=== PATIENT | female | born 1930 | race Native Hawaiian/Other Pacific Islander ===

== ENCOUNTER 2018-03-10 10:22 | Outpatient (CLI) | payer OTHER ==
[2018-03-10 11:09] LABS: PLATELET COUNT 281 K/uL (152-353)
[2018-03-10 11:53] LABS: POTASSIUM 3.9 mmol/L (3.6-5.2)
== END 2018-03-10 20:16 | disposition home or self-care (01) ==
LOC: LAB 10:22
PROVIDERS: Internal Medicine
DX: D51.0 Vitamin B12 deficiency anemia due to intrinsic factor deficiency (principal); M62.81 Muscle weakness (generalized); I10 Essential (primary) hypertension
CPT/HCPCS: 80053; 80061; 82607; 82746; 84436; 84443; 85027

== ENCOUNTER 2018-03-11 10:11 | Outpatient (CLI) | payer OTHER | END 2018-03-11 20:34 | disposition home or self-care (01) | LOC: LAB 10:11 | DX: E53.8 Deficiency of other specified B group vitamins (principal) | CPT/HCPCS: 82607 ==

== ENCOUNTER 2018-03-16 12:30 | Outpatient (CLI) | payer OTHER | END 2018-03-16 12:34 | disposition short-term general hospital (02) | LOC: AMB 12:30 | DX: R53.81 Other malaise (principal) | CPT/HCPCS: A0425; A0427 ==

== ENCOUNTER 2018-03-16 12:37 | Emergency (ER) | payer OTHER ==
[~2018-03-16] VITALS: Ht 165.1 cm; Wt 49.0 kg
[2018-03-16 12:51] VITALS: TEMP 97.5
[2018-03-16 13:50] LABS: PLATELET COUNT 280 K/uL (152-353)
[2018-03-16 14:07] LABS: POTASSIUM 3.9 mmol/L (3.6-5.2); SODIUM 141 mmol/L (136-145)
[2018-03-16 17:00] VITALS: BP 132/84
== END 2018-03-16 17:00 | disposition home or self-care (01) ==
LOC: ED 12:37
PROVIDERS: Family Medicine
DX: F03.90 Unspecified dementia, unspecified severity, without behavioral disturbance, psychotic disturbance, mood disturbance, and anxiety (principal); W18.39XA Other fall on same level, initial encounter; Y92.89 Other specified places as the place of occurrence of the external cause
CPT/HCPCS: 80053; 81000; 84484; 85027; 93005; 99283

== ENCOUNTER 2018-03-19 13:26 | Outpatient (CLI) | payer OTHER | END 2018-03-19 13:49 | disposition short-term general hospital (02) | LOC: AMB 13:26 | DX: R53.1 Weakness (principal); R53.83 Other fatigue | CPT/HCPCS: A0425; A0426 ==

== ENCOUNTER 2018-03-25 13:50 | Inpatient (IN) | payer OTHER | END 2018-04-08 08:52 | disposition still patient (30) | LOC: PAVB 13:50 | PROVIDERS: ADMIT Internal Medicine ==

== ENCOUNTER 2018-03-26 07:13 | Outpatient (CLI) | payer OTHER ==
[2018-03-26 10:16] LABS: PLATELET COUNT 279 K/uL (152-353)
[2018-03-26 10:38] LABS: POTASSIUM 3.9 mmol/L (3.6-5.2)
== END 2018-03-26 20:13 | disposition home or self-care (01) ==
LOC: LAB 07:13
PROVIDERS: Internal Medicine
DX: E03.9 Hypothyroidism, unspecified (principal); I10 Essential (primary) hypertension; G20 Parkinson's disease; D64.9 Anemia, unspecified
CPT/HCPCS: 36415; 80053; 82306; 82728; 83540; 84443; 85027

== ENCOUNTER 2018-03-27 14:15 | Outpatient (CLI) | payer OTHER | END 2018-03-27 20:11 | disposition home or self-care (01) | LOC: LAB 14:15 | DX: Z13.89 Encounter for screening for other disorder (principal) | CPT/HCPCS: 87081 ==

== ENCOUNTER 2018-04-01 14:11 | Outpatient (CLI) | payer OTHER | END 2018-04-01 19:45 | LOC: LAB 14:11 | DX: R41.82 Altered mental status, unspecified (principal); R35.0 Frequency of micturition | CPT/HCPCS: 81000 ==

== ENCOUNTER 2018-04-02 04:36 | Outpatient (CLI) | payer OTHER | END 2018-04-02 19:21 | LOC: LAB 04:36 | DX: D64.9 Anemia, unspecified (principal) | CPT/HCPCS: 85014; 85018 ==

== ENCOUNTER 2018-04-05 06:48 | Outpatient (CLI) | payer OTHER | END 2018-04-05 19:52 | disposition home or self-care (01) | LOC: LAB 06:48 | PROVIDERS: Internal Medicine | DX: E78.5 Hyperlipidemia, unspecified (principal) | CPT/HCPCS: 80061 ==

== ENCOUNTER 2018-04-08 09:23 | Inpatient (IN) | payer OTHER | END 2018-05-08 08:37 | disposition still patient (30) | LOC: PAVB 09:23 | PROVIDERS: ADMIT Internal Medicine ==

== ENCOUNTER 2018-05-08 08:53 | Inpatient (IN) | payer OTHER | END 2018-06-08 11:09 | disposition still patient (30) | LOC: PAVB 08:53 | PROVIDERS: ADMIT Internal Medicine ==

== ENCOUNTER 2018-05-12 04:11 | Outpatient (CLI) | payer OTHER | END 2018-05-12 21:11 | disposition home or self-care (01) | LOC: LAB 04:11 | DX: N89.8 Other specified noninflammatory disorders of vagina (principal) | CPT/HCPCS: 87070 ==

== ENCOUNTER 2018-05-13 05:38 | Outpatient (CLI) | payer OTHER | END 2018-05-13 23:33 | disposition home or self-care (01) | LOC: LAB 05:38 | DX: R41.82 Altered mental status, unspecified (principal) | CPT/HCPCS: 81000; 87077; 87086; 87088; 87186 ==

== ENCOUNTER 2018-05-28 06:36 | Outpatient (CLI) | payer OTHER | END 2018-05-28 21:22 | disposition home or self-care (01) | LOC: LAB 06:36 | DX: N89.8 Other specified noninflammatory disorders of vagina (principal); R82.90 Unspecified abnormal findings in urine | CPT/HCPCS: 81000; 87070 ==

== ENCOUNTER 2018-06-07 10:47 | Outpatient (CLI) | payer OTHER | END 2018-06-07 19:01 | disposition home or self-care (01) | LOC: RAD 10:47 | DX: R10.9 Unspecified abdominal pain (principal); R10.2 Pelvic and perineal pain; N89.8 Other specified noninflammatory disorders of vagina ==

== ENCOUNTER 2018-06-08 11:49 | Inpatient (IN) | payer OTHER | END 2018-07-09 13:46 | disposition still patient (30) | LOC: PAVB 11:49 | PROVIDERS: ADMIT Internal Medicine | DX: S06.5X0A Traumatic subdural hemorrhage without loss of consciousness, initial encounter (principal); M62.81 Muscle weakness (generalized); Z91.81 History of falling; G20 Parkinson's disease; F02.80 Dementia in other diseases classified elsewhere, unspecified severity, without behavioral disturbance, psychotic disturbance, mood disturbance, and anxiety; Z86.73 Personal history of transient ischemic attack (TIA), and cerebral infarction without residual deficits; I10 Essential (primary) hypertension; F32.89 Other specified depressive episodes; F41.9 Anxiety disorder, unspecified | CPT/HCPCS: 81000; 87088 ==

== ENCOUNTER 2018-06-08 14:25 | Outpatient (CLI) | payer OTHER | END 2018-06-08 20:43 | disposition home or self-care (01) | LOC: CT 14:25 | DX: S09.8XXA Other specified injuries of head, initial encounter (principal); X58.XXXA Exposure to other specified factors, initial encounter; Y93.89 Activity, other specified; Y92.128 Other place in nursing home as the place of occurrence of the external cause ==

== ENCOUNTER 2018-06-09 11:55 | Outpatient (CLI) | payer OTHER | END 2018-06-09 21:35 | disposition home or self-care (01) | LOC: LAB 11:55 | DX: R10.2 Pelvic and perineal pain (principal); N93.8 Other specified abnormal uterine and vaginal bleeding | CPT/HCPCS: 87070; 87077; 87185; 87186; 87210 ==

== ENCOUNTER → 2018-06-17 | Outpatient (CLI) | payer OTHER | LOC: RAD 19:36 | DX: S00.83XA Contusion of other part of head, initial encounter (principal) ==

== ENCOUNTER 2018-06-18 11:13 | Outpatient (CLI) | payer OTHER | END 2018-06-18 19:15 | disposition home or self-care (01) | LOC: CT 11:13 | DX: S06.5X9A Traumatic subdural hemorrhage with loss of consciousness of unspecified duration, initial encounter (principal); W19.XXXA Unspecified fall, initial encounter; Y93.89 Activity, other specified; Y92.89 Other specified places as the place of occurrence of the external cause ==

== ENCOUNTER 2018-06-18 20:28 | Emergency (ER) | payer OTHER ==
[~2018-06-18] VITALS: Ht 170.2 cm; Wt 47.6 kg
[2018-06-18 20:45] VITALS: TEMP 97.9
[2018-06-18 21:21] LABS: PLATELET COUNT 350 K/uL (152-353)
[2018-06-18 23:29] VITALS: BP 151/73
== END 2018-06-18 23:37 | disposition short-term general hospital (02) ==
LOC: ED 20:28
PROVIDERS: Family Medicine
DX: S06.5X0A Traumatic subdural hemorrhage without loss of consciousness, initial encounter (principal); W18.39XA Other fall on same level, initial encounter; Y92.128 Other place in nursing home as the place of occurrence of the external cause
CPT/HCPCS: 36415; 80053; 85027; 85610; 85730; 99285

== ENCOUNTER 2018-07-09 14:04 | Inpatient (IN) | payer OTHER | END 2018-08-06 11:43 | disposition still patient (30) | LOC: PAVB 14:04 | PROVIDERS: ADMIT Internal Medicine | DX: S06.5X0A Traumatic subdural hemorrhage without loss of consciousness, initial encounter (principal); M62.81 Muscle weakness (generalized); Z91.81 History of falling; G20 Parkinson's disease; F02.80 Dementia in other diseases classified elsewhere, unspecified severity, without behavioral disturbance, psychotic disturbance, mood disturbance, and anxiety; Z86.73 Personal history of transient ischemic attack (TIA), and cerebral infarction without residual deficits; E03.9 Hypothyroidism, unspecified; E78.5 Hyperlipidemia, unspecified; F32.89 Other specified depressive episodes; F41.9 Anxiety disorder, unspecified ==

== ENCOUNTER 2018-08-06 09:06 | Outpatient (CLI) | payer OTHER | END 2018-08-06 22:21 | disposition home or self-care (01) | LOC: US 09:06 | DX: N85.2 Hypertrophy of uterus (principal) ==

== ENCOUNTER 2018-08-06 12:07 | Inpatient (IN) | payer OTHER | END 2018-09-06 11:37 | disposition still patient (30) | LOC: PAVB 12:07 | PROVIDERS: ADMIT Internal Medicine ==

== ENCOUNTER 2018-09-06 11:55 | Inpatient (IN) | payer OTHER | END 2018-10-06 12:45 | disposition still patient (30) | LOC: PAVB 11:55 | PROVIDERS: ADMIT Internal Medicine ==

== ENCOUNTER 2018-09-08 07:15 | Outpatient (CLI) | payer OTHER ==
[2018-09-08 08:26] LABS: PLATELET COUNT 352 K/uL (152-353)
[2018-09-08 09:02] LABS: POTASSIUM 4.3 mmol/L (3.6-5.2)
== END 2018-09-08 19:41 | disposition home or self-care (01) ==
LOC: LAB 07:15
PROVIDERS: Internal Medicine
DX: I10 Essential (primary) hypertension (principal); E03.8 Other specified hypothyroidism
CPT/HCPCS: 36415; 80053; 82306; 84443; 85027

== ENCOUNTER 2018-09-10 07:10 | Outpatient (CLI) | payer OTHER | END 2018-09-10 20:04 | disposition home or self-care (01) | LOC: LAB 07:10 | DX: D64.89 Other specified anemias (principal); D64.9 Anemia, unspecified | CPT/HCPCS: 36415; 82728; 83540 ==

== ENCOUNTER 2018-09-13 15:05 | Outpatient (CLI) | payer OTHER | END 2018-09-13 23:06 | disposition home or self-care (01) | LOC: RESP 15:05 | DX: Z01.818 Encounter for other preprocedural examination (principal) | CPT/HCPCS: 93005 ==

== ENCOUNTER 2018-09-14 06:46 | Outpatient (CLI) | payer OTHER ==
[2018-09-14 07:07] LABS: PLATELET COUNT 342 K/uL (152-353)
[2018-09-14 07:33] LABS: POTASSIUM 4.2 mmol/L (3.6-5.2)
== END 2018-09-14 23:16 | disposition home or self-care (01) ==
LOC: LAB 06:46
PROVIDERS: Internal Medicine
DX: Z01.818 Encounter for other preprocedural examination (principal)
CPT/HCPCS: 36415; 80048; 85027

== ENCOUNTER → 2018-09-20 | Outpatient (CLI) | payer OTHER | LOC: RAD 10:38 | DX: M79.89 Other specified soft tissue disorders (principal) ==

== ENCOUNTER 2018-09-21 08:05 | Outpatient (CLI) | payer OTHER ==
[~2018-09-21] VITALS: Ht 170.2 cm; Wt 52.6 kg
== END 2018-09-21 22:45 | disposition home or self-care (01) ==
LOC: NM 08:05
DX: Z01.818 Encounter for other preprocedural examination (principal); R94.31 Abnormal electrocardiogram [ECG] [EKG]
CPT/HCPCS: A9500; J2785

== ENCOUNTER 2018-10-05 23:18 | Outpatient (CLI) | payer OTHER | END 2018-10-05 23:59 | disposition home or self-care (01) | LOC: LAB 23:18 | DX: N93.8 Other specified abnormal uterine and vaginal bleeding (principal) | CPT/HCPCS: 87070; 87077; 87186 ==

== ENCOUNTER 2018-10-06 13:37 | Inpatient (IN) | payer OTHER ==
[2018-10-19] MEDS ORDERED: [UNRECOGNIZED DRUG - OTHER] PO (17:51)
[2018-10-19] MEDS ORDERED: CELEXA20 MG PO (17:52)
[2018-10-19] MEDS ORDERED: LEVO0.0723 PO (17:53)
[2018-10-19] MEDS ORDERED: ROSU10TA PO (18:03)
[2018-10-19] MEDS ORDERED: DOCU100C10 PO (18:04)
[2018-10-19] MEDS ORDERED: CLARITIN10 MG PO (18:04)
[2018-10-19] MEDS ORDERED: MULT VITAMIN PO (18:05)
[2018-10-19] MEDS ORDERED: PROTEINE1 PO (18:06)
== END 2018-11-06 08:42 | disposition still patient (30) ==
LOC: PAVB 13:37
PROVIDERS: ADMIT Internal Medicine
DX: Z51.89 Encounter for other specified aftercare (principal)
CPT/HCPCS: 85610

== ENCOUNTER 2018-10-09 06:11 | Outpatient (CLI) | payer OTHER | END 2018-10-09 19:46 | disposition home or self-care (01) | LOC: LAB 06:11 | DX: Z51.81 Encounter for therapeutic drug level monitoring (principal); N39.0 Urinary tract infection, site not specified | CPT/HCPCS: 81000; 87077; 87086; 87088; 87186 ==

== ENCOUNTER 2018-10-18 15:19 | Outpatient (CLI) | payer OTHER ==
[2018-10-19] MEDS ORDERED: [UNRECOGNIZED DRUG - OTHER] PO (17:51)
[2018-10-19] MEDS ORDERED: CELEXA20 MG PO (17:52)
[2018-10-19] MEDS ORDERED: LEVO0.0723 PO (17:53)
[2018-10-19] MEDS ORDERED: ROSU10TA PO (18:03)
[2018-10-19] MEDS ORDERED: DOCU100C10 PO (18:04)
[2018-10-19] MEDS ORDERED: CLARITIN10 MG PO (18:04)
[2018-10-19] MEDS ORDERED: MULT VITAMIN PO (18:05)
[2018-10-19] MEDS ORDERED: PROTEINE1 PO (18:06)
== END 2018-10-18 22:48 | disposition home or self-care (01) ==
LOC: US 15:19
DX: R60.1 Generalized edema (principal); M79.605 Pain in left leg

== ENCOUNTER 2018-10-18 16:30 | Inpatient (IN) | payer OTHER ==
[~2018-10-18] VITALS: Ht 157.5 cm; Wt 57.2 kg
[2018-10-18 18:20] VITALS: BP 183/57; TEMP 96.7
[2018-10-18 18:24] VITALS: BP 183/60; TEMP 96.7; Ht 157.5 cm; Wt 57.2 kg
[2018-10-18 19:02] LABS: PLATELET COUNT 381 K/uL (152-353)
[2018-10-18 20:00] VITALS: BP 138/63; TEMP 98.1
[2018-10-18 20:05] LABS: POTASSIUM 3.9 mmol/L (3.6-5.2)
[2018-10-18 21:05] LABS: PARTIAL THROMBOPLASTIN TIME 24.8 SECONDS (24.5-33.6)
[2018-10-19] VITALS: BP 135/52; TEMP 97.8
[2018-10-19 04:00] VITALS: BP 145/50; TEMP 97.9
[2018-10-19 08:00] VITALS: BP 147/55; TEMP 97.5
[2018-10-19 12:00] VITALS: BP 125/47; TEMP 97.7
[2018-10-19 16:00] VITALS: BP 184/68; TEMP 98.3
[2018-10-19] MEDS ORDERED: [UNRECOGNIZED DRUG - OTHER] PO (17:51)
[2018-10-19] MEDS ORDERED: CELEXA20 MG PO (17:52)
[2018-10-19] MEDS ORDERED: LEVO0.0723 PO (17:53)
[2018-10-19] MEDS ORDERED: ROSU10TA PO (18:03)
[2018-10-19] MEDS ORDERED: DOCU100C10 PO (18:04)
[2018-10-19] MEDS ORDERED: CLARITIN10 MG PO (18:04)
[2018-10-19] MEDS ORDERED: MULT VITAMIN PO (18:05)
[2018-10-19] MEDS ORDERED: PROTEINE1 PO (18:06)
[2018-10-19 20:00] VITALS: BP 126/51; TEMP 98.5
[2018-10-20] VITALS: BP 135/50; TEMP 98.6
[2018-10-20 04:00] VITALS: BP 124/49; TEMP 98.4
[2018-10-20 08:00] VITALS: BP 164/56; TEMP 98.2
[2018-10-20 12:00] VITALS: BP 135/52; TEMP 97
[2018-10-20 16:00] VITALS: BP 123/49; TEMP 98.3
[2018-10-20 19:57] VITALS: BP 133/46; TEMP 98.3
[2018-10-21 00:30] VITALS: BP 144/58; TEMP 97.7
[2018-10-21 04:00] VITALS: BP 132/64; TEMP 98
[2018-10-21 08:00] VITALS: BP 138/68; TEMP 97.9
[2018-10-21 12:00] VITALS: BP 144/57; TEMP 97.8
== END 2018-10-21 13:30 | DRG 301 ==
LOC: MED/SURG 16:30
PROVIDERS: ADMIT Internal Medicine
DX: I82.492 Acute embolism and thrombosis of other specified deep vein of left lower extremity (principal); G30.8 Other Alzheimer's disease; F02.80 Dementia in other diseases classified elsewhere, unspecified severity, without behavioral disturbance, psychotic disturbance, mood disturbance, and anxiety; E03.8 Other specified hypothyroidism; Z86.73 Personal history of transient ischemic attack (TIA), and cerebral infarction without residual deficits; G20 Parkinson's disease; E78.00 Pure hypercholesterolemia, unspecified; E55.9 Vitamin D deficiency, unspecified; N89.8 Other specified noninflammatory disorders of vagina
CPT/HCPCS: 36415; 80053; 85027; 85610; 85730; 93005; J1650

== ENCOUNTER 2018-10-22 08:00 | Outpatient (CLI) | payer OTHER ==
[~2018-10-22 08:00] MED LIST: CELEXA20 MG PO; CLARITIN10 MG PO; DOCU100C10 PO; LEVO0.0723 PO; MULT VITAMIN PO; PROTEINE1 PO; ROSU10TA PO; [UNRECOGNIZED DRUG - OTHER] PO
== END 2018-10-22 16:00 | disposition home or self-care (01) ==
LOC: LAB 08:00
DX: Z79.01 Long term (current) use of anticoagulants (principal)
CPT/HCPCS: 85610

== ENCOUNTER 2018-10-25 20:51 | Outpatient (CLI) | payer OTHER | END 2018-10-25 22:00 | disposition home or self-care (01) | LOC: LAB 20:51 | DX: Z51.81 Encounter for therapeutic drug level monitoring (principal) | CPT/HCPCS: 36415; 85610 ==

== ENCOUNTER 2018-10-28 06:38 | Outpatient (CLI) | payer OTHER | END 2018-10-28 20:45 | disposition home or self-care (01) | LOC: LABW 06:38 → LAB 06:38 | DX: Z51.81 Encounter for therapeutic drug level monitoring (principal) | CPT/HCPCS: 36415; 85610 ==

== ENCOUNTER 2018-10-30 04:36 | Outpatient (CLI) | payer OTHER | END 2018-10-30 19:42 | disposition home or self-care (01) | LOC: LAB 04:36 | DX: Z79.899 Other long term (current) drug therapy (principal); I82.492 Acute embolism and thrombosis of other specified deep vein of left lower extremity | CPT/HCPCS: 36415; 85610 ==

== ENCOUNTER 2018-11-01 13:33 | Outpatient (CLI) | payer OTHER | END 2018-11-01 22:21 | disposition home or self-care (01) | LOC: LABW 13:33 | DX: I82.492 Acute embolism and thrombosis of other specified deep vein of left lower extremity (principal) | CPT/HCPCS: 36415; 85610 ==

== ENCOUNTER 2018-11-05 07:30 | Outpatient (CLI) | payer OTHER | END 2018-11-05 19:20 | disposition home or self-care (01) | LOC: LAB 07:30 | DX: Z51.81 Encounter for therapeutic drug level monitoring (principal) | CPT/HCPCS: 85610 ==

== ENCOUNTER 2018-11-06 09:00 | Inpatient (IN) | payer OTHER | END 2018-12-06 09:42 | disposition still patient (30) | LOC: PAVB 09:00 | PROVIDERS: ADMIT Internal Medicine ==

== ENCOUNTER 2018-11-08 05:36 | Outpatient (CLI) | payer OTHER | END 2018-11-08 19:09 | disposition home or self-care (01) | LOC: LAB 05:36 | DX: Z51.89 Encounter for other specified aftercare (principal) | CPT/HCPCS: 36415; 85610 ==

== ENCOUNTER 2018-12-06 10:18 | Inpatient (IN) | payer OTHER | END 2019-01-06 10:39 | disposition still patient (30) | LOC: PAVB 10:18 | PROVIDERS: ADMIT Internal Medicine ==

== ENCOUNTER 2019-01-05 01:48 | Outpatient (CLI) | payer OTHER | END 2019-01-05 22:14 | disposition home or self-care (01) | LOC: LAB 01:48 | DX: R82.998 Other abnormal findings in urine (principal); R41.0 Disorientation, unspecified | CPT/HCPCS: 81000; 87077; 87086; 87088; 87185 ==

== ENCOUNTER 2019-01-06 11:43 | Inpatient (IN) | payer OTHER | END 2019-02-06 16:30 | disposition still patient (30) | LOC: PAVB 11:43 | PROVIDERS: ADMIT Internal Medicine ==

== ENCOUNTER 2019-01-11 20:20 | Outpatient (CLI) | payer OTHER | END 2019-01-11 23:21 | disposition home or self-care (01) | LOC: LAB 20:20 | DX: N39.0 Urinary tract infection, site not specified (principal) | CPT/HCPCS: 81000; 87088 ==

== ENCOUNTER 2019-01-12 03:16 | Outpatient (CLI) | payer OTHER | END 2019-01-12 23:41 | disposition home or self-care (01) | LOC: LAB 03:16 | DX: Z51.81 Encounter for therapeutic drug level monitoring (principal) | CPT/HCPCS: 36415; 85610 ==

== ENCOUNTER 2019-02-06 16:46 | Inpatient (IN) | payer OTHER | END 2019-03-08 09:36 | disposition still patient (30) | LOC: PAVB 16:46 | PROVIDERS: ADMIT Internal Medicine ==

== ENCOUNTER 2019-02-08 07:47 | Outpatient (CLI) | payer OTHER | END 2019-02-08 22:48 | disposition home or self-care (01) | LOC: LAB 07:47 | DX: Z51.81 Encounter for therapeutic drug level monitoring (principal) | CPT/HCPCS: 85610 ==

== ENCOUNTER 2019-02-22 04:40 | Outpatient (CLI) | payer OTHER | END 2019-02-22 23:10 | disposition home or self-care (01) | LOC: LAB 04:40 | DX: R39.12 Poor urinary stream (principal) | CPT/HCPCS: 81000; 87077; 87086; 87088; 87186 ==

== ENCOUNTER 2019-03-05 07:19 | Outpatient (CLI) | payer OTHER | END 2019-03-05 23:59 | disposition home or self-care (01) | LOC: LAB 07:19 | DX: N39.0 Urinary tract infection, site not specified (principal) | CPT/HCPCS: 81000; 87077; 87086; 87088; 87186 ==

== ENCOUNTER 2019-03-08 12:00 | Inpatient (IN) | payer OTHER ==
[~2019-03-08] VITALS: Ht 170.2 cm; Wt 64.6 kg
== END 2019-04-08 11:10 | disposition still patient (30) ==
LOC: PAVB 12:00
PROVIDERS: ADMIT Internal Medicine
CPT/HCPCS: J1335

== ENCOUNTER 2019-03-14 07:49 | Outpatient (CLI) | payer OTHER ==
[2019-03-14 08:05] LABS: PLATELET COUNT 272 K/uL (152-353)
[2019-03-14 08:35] LABS: POTASSIUM 3.9 mmol/L (3.6-5.2)
== END 2019-03-14 22:17 | disposition home or self-care (01) ==
LOC: LAB 07:49
PROVIDERS: Internal Medicine
DX: D50.8 Other iron deficiency anemias (principal); E03.8 Other specified hypothyroidism; E78.49 Other hyperlipidemia; I10 Essential (primary) hypertension; Z51.81 Encounter for therapeutic drug level monitoring; E55.9 Vitamin D deficiency, unspecified
CPT/HCPCS: 80053; 80061; 82306; 82728; 83540; 84443; 85027; 85610

== ENCOUNTER 2019-03-18 07:24 | Outpatient (CLI) | payer OTHER | END 2019-03-18 19:52 | disposition home or self-care (01) | LOC: LABW 07:24 | DX: Z79.01 Long term (current) use of anticoagulants (principal) | CPT/HCPCS: 36415; 85610 ==

== ENCOUNTER 2019-03-21 04:26 | Outpatient (CLI) | payer OTHER | END 2019-03-21 19:20 | disposition home or self-care (01) | LOC: LAB 04:26 | DX: N39.0 Urinary tract infection, site not specified (principal) | CPT/HCPCS: 81000 ==

== ENCOUNTER 2019-04-08 11:38 | Inpatient (IN) | payer OTHER | END 2019-05-08 08:00 | disposition still patient (30) | LOC: PAVB 11:38 | PROVIDERS: ADMIT Internal Medicine ==

== ENCOUNTER 2019-04-14 06:15 | Outpatient (CLI) | payer OTHER | END 2019-04-14 20:39 | disposition home or self-care (01) | LOC: LAB 06:15 | DX: Z51.81 Encounter for therapeutic drug level monitoring (principal) | CPT/HCPCS: 36415; 85610 ==

== ENCOUNTER 2019-04-18 04:47 | Outpatient (CLI) | payer OTHER | END 2019-04-18 19:10 | disposition home or self-care (01) | LOC: LAB 04:47 | DX: Z79.899 Other long term (current) drug therapy (principal); Z51.81 Encounter for therapeutic drug level monitoring | CPT/HCPCS: 85610 ==

== ENCOUNTER 2019-05-02 04:24 | Outpatient (CLI) | payer OTHER | END 2019-05-02 19:14 | disposition home or self-care (01) | LOC: LAB 04:24 | DX: Z51.81 Encounter for therapeutic drug level monitoring (principal) | CPT/HCPCS: 36415; 85610 ==

== ENCOUNTER 2019-05-08 10:10 | Inpatient (IN) | payer OTHER | END 2019-06-08 08:35 | disposition still patient (30) | LOC: PAVB 10:10 | PROVIDERS: ADMIT Internal Medicine ==

== ENCOUNTER 2019-05-17 06:51 | Outpatient (CLI) | payer OTHER | END 2019-05-17 20:47 | disposition home or self-care (01) | LOC: LAB 06:51 | DX: I82.402 Acute embolism and thrombosis of unspecified deep veins of left lower extremity (principal) | CPT/HCPCS: 85610 ==

== ENCOUNTER 2019-05-31 06:27 | Outpatient (CLI) | payer OTHER | END 2019-05-31 19:03 | disposition home or self-care (01) | LOC: LAB 06:27 | DX: Z51.81 Encounter for therapeutic drug level monitoring (principal) | CPT/HCPCS: 85610 ==

== ENCOUNTER 2019-06-03 14:17 | Outpatient (CLI) | payer OTHER | END 2019-06-03 22:41 | disposition home or self-care (01) | LOC: LAB 14:17 | DX: N89.8 Other specified noninflammatory disorders of vagina (principal) | CPT/HCPCS: 87070; 87077; 87186 ==

== ENCOUNTER 2019-06-08 08:54 | Inpatient (IN) | payer OTHER | END 2019-07-09 09:56 | disposition still patient (30) | LOC: PAVB 08:54 | PROVIDERS: ADMIT Internal Medicine ==

== ENCOUNTER 2019-06-14 16:21 | Outpatient (CLI) | payer OTHER ==
[2019-06-14 17:02] LABS: SODIUM 141 mmol/L (136-145)
== END 2019-06-14 19:00 | disposition home or self-care (01) ==
LOC: LAB 16:21
PROVIDERS: Internal Medicine
DX: R55 Syncope and collapse (principal); R11.0 Nausea; S06.5X0A Traumatic subdural hemorrhage without loss of consciousness, initial encounter
CPT/HCPCS: 80048; 84484

== ENCOUNTER 2019-06-18 06:54 | Outpatient (CLI) | payer OTHER | END 2019-06-18 20:01 | disposition home or self-care (01) | LOC: LAB 06:54 | DX: Z51.81 Encounter for therapeutic drug level monitoring (principal) | CPT/HCPCS: 85610 ==

== ENCOUNTER 2019-07-09 10:37 | Inpatient (IN) | payer OTHER | END 2019-08-07 13:16 | disposition still patient (30) | LOC: PAVB 10:37 | PROVIDERS: ADMIT Internal Medicine ==

== ENCOUNTER 2019-08-07 14:02 | Inpatient (IN) | payer OTHER | END 2019-09-07 09:42 | disposition still patient (30) | LOC: PAVB 14:02 | PROVIDERS: ADMIT Internal Medicine ==

== ENCOUNTER 2019-09-07 10:29 | Inpatient (IN) | payer OTHER | END 2019-10-07 09:03 | disposition still patient (30) | LOC: PAVB 10:29 | PROVIDERS: ADMIT Internal Medicine ==

== ENCOUNTER 2019-09-12 07:10 | Outpatient (CLI) | payer OTHER ==
[2019-09-12 07:50] LABS: PLATELET COUNT 226 K/uL (152-353)
[2019-09-12 08:12] LABS: POTASSIUM 4.3 mmol/L (3.6-5.2)
== END 2019-09-12 19:13 | disposition home or self-care (01) ==
LOC: LAB 07:10
PROVIDERS: Internal Medicine
DX: E03.8 Other specified hypothyroidism (principal); I10 Essential (primary) hypertension; E78.49 Other hyperlipidemia; E55.9 Vitamin D deficiency, unspecified; D64.89 Other specified anemias
CPT/HCPCS: 80053; 84443; 85027

== ENCOUNTER 2019-10-07 10:08 | Inpatient (IN) | payer OTHER | END 2019-11-07 09:12 | disposition still patient (30) | LOC: PAVB 10:08 | PROVIDERS: ADMIT Internal Medicine | CPT/HCPCS: 87635; U0002 ==

== ENCOUNTER 2019-10-22 15:29 | Outpatient (CLI) | payer OTHER | END 2019-10-22 21:47 | disposition home or self-care (01) | LOC: RAD 15:29 | DX: R09.3 Abnormal sputum (principal) ==

== ENCOUNTER 2019-10-24 15:36 | Outpatient (CLI) | payer OTHER ==
[2019-10-24 16:02] LABS: PLATELET COUNT 249 K/uL (152-353)
[2019-10-24 16:06] LABS: POTASSIUM 4.2 mmol/L (3.6-5.2)
== END 2019-10-24 19:44 | disposition home or self-care (01) ==
LOC: LAB 15:36
PROVIDERS: Nurse Practitioner
DX: J18.9 Pneumonia, unspecified organism (principal)
CPT/HCPCS: 80053; 85027

== ENCOUNTER 2019-10-25 11:51 | Outpatient (CLI) | payer OTHER | END 2019-10-25 19:12 | disposition home or self-care (01) | LOC: LAB 11:51 | DX: R73.9 Hyperglycemia, unspecified (principal) | CPT/HCPCS: 83036 ==

== ENCOUNTER 2019-11-07 10:06 | Inpatient (IN) | payer OTHER | END 2019-12-07 10:21 | disposition still patient (30) | LOC: PAVB 10:06 | PROVIDERS: ADMIT Internal Medicine | CPT/HCPCS: 87635; U0002 ==

== ENCOUNTER → 2019-11-24 | Outpatient (CLI) | payer OTHER | LOC: LAB 05:43 | DX: N76.0 Acute vaginitis (principal) | CPT/HCPCS: 87070; 87077; 87186 ==

== ENCOUNTER 2019-12-07 10:29 | Outpatient (CLI) | payer OTHER | END 2019-12-07 22:05 | disposition home or self-care (01) | LOC: LAB 10:29 | DX: E55.9 Vitamin D deficiency, unspecified (principal) | CPT/HCPCS: 82306 ==

== ENCOUNTER 2019-12-07 11:08 | Inpatient (IN) | payer OTHER | END 2020-01-07 09:17 | disposition still patient (30) | LOC: PAVB 11:08 | PROVIDERS: ADMIT Internal Medicine | CPT/HCPCS: 87635; U0002 ==

== ENCOUNTER 2020-01-07 09:42 | Inpatient (IN) | payer OTHER | END 2020-02-07 12:18 | disposition still patient (30) | LOC: PAVB 09:42 | PROVIDERS: ADMIT Internal Medicine | CPT/HCPCS: 87635; U0002; U0003 ==

== ENCOUNTER 2020-02-07 13:08 | Inpatient (IN) | payer OTHER | END 2020-03-08 11:06 | disposition still patient (30) | LOC: PAVB 13:08 | PROVIDERS: ADMIT Internal Medicine ==

== ENCOUNTER 2020-03-08 13:49 | Inpatient (IN) | payer OTHER | END 2020-04-08 08:00 | disposition still patient (30) | LOC: PAVB 13:49 | PROVIDERS: ADMIT Internal Medicine ==

== ENCOUNTER 2020-03-10 15:38 | Outpatient (CLI) | payer OTHER | END 2020-03-10 23:22 | disposition home or self-care (01) | LOC: LAB 15:38 | DX: E03.8 Other specified hypothyroidism (principal); E78.49 Other hyperlipidemia; I10 Essential (primary) hypertension; E55.9 Vitamin D deficiency, unspecified | CPT/HCPCS: 87070; 87077; 87186 ==

== ENCOUNTER 2020-03-12 06:57 | Outpatient (CLI) | payer OTHER ==
[2020-03-12 08:02] LABS: POTASSIUM 4.1 mmol/L (3.6-5.2)
[2020-03-12 08:08] LABS: PLATELET COUNT 224 K/uL (152-353)
== END 2020-03-12 23:35 | disposition home or self-care (01) ==
LOC: LAB 06:57
PROVIDERS: Internal Medicine
DX: E03.8 Other specified hypothyroidism (principal); E78.49 Other hyperlipidemia; I10 Essential (primary) hypertension; E55.9 Vitamin D deficiency, unspecified; Z51.81 Encounter for therapeutic drug level monitoring
CPT/HCPCS: 80053; 80061; 82306; 84443; 85027; 85610

== ENCOUNTER 2020-04-08 09:00 | Inpatient (IN) | payer OTHER ==
[2020-04-30] MEDS ORDERED: MIRALAX17 GM PO (15:10)
[2020-04-30] MEDS ORDERED: LEVO0.1224 PO (15:11)
[2020-04-30] MEDS ORDERED: FERROUS SULF325 M1 PO (15:13)
[2020-04-30] MEDS ORDERED: BENEPROTEIN6 GM PO (15:14)
== END 2020-05-08 10:00 | disposition still patient (30) ==
LOC: PAVB 09:00
PROVIDERS: ADMIT Internal Medicine; ATTEND Internal Medicine

== ENCOUNTER 2020-04-16 06:42 | Outpatient (CLI) | payer OTHER | END 2020-04-16 19:03 | disposition home or self-care (01) | LOC: LAB 06:42 | DX: R87.89 Other abnormal findings in specimens from female genital organs (principal) | CPT/HCPCS: 87070 ==

== ENCOUNTER 2020-04-29 14:59 | Inpatient (IN) | payer OTHER ==
[2020-04-29] VITALS (13 sets, daily range): BP systolic 132–178; BP diastolic 46–96; TEMP 98–100.6; Ht 170.2 cm; Wt 73.9 kg
[~2020-04-29] VITALS: Ht 170.2 cm; Wt 73.9 kg
[2020-04-29 15:57] LABS: PLATELET COUNT 223 K/uL (152-353)
[2020-04-29 17:08] LABS: POTASSIUM 3.2 mmol/L (3.6-5.2); SODIUM 158 mmol/L (136-145)
[2020-04-30] VITALS (23 sets, daily range): BP systolic 93–154; BP diastolic 39–92; TEMP 97–101
[2020-04-30 00:09] LABS: POTASSIUM 3.1 mmol/L (3.6-5.2)
[2020-04-30 06:23] LABS: POTASSIUM 2.9 mmol/L (3.6-5.2)
[2020-04-30 07:20] LABS: PLATELET COUNT 189 K/uL (152-353)
[2020-04-30] MEDS ORDERED: MIRALAX17 GM PO (15:10)
[2020-04-30] MEDS ORDERED: LEVO0.1224 PO (15:11)
[2020-04-30] MEDS ORDERED: FERROUS SULF325 M1 PO (15:13)
[2020-04-30] MEDS ORDERED: BENEPROTEIN6 GM PO (15:14)
[2020-04-30 18:28] LABS: POTASSIUM 4.5 mmol/L (3.6-5.2)
[2020-05-01] VITALS (24 sets, daily range): BP systolic 106–175; BP diastolic 45–74; TEMP 97.7–99.4
[2020-05-01 05:12] LABS: PLATELET COUNT 184 K/uL (152-353)
[2020-05-01 05:29] LABS: POTASSIUM 3.8 mmol/L (3.6-5.2)
[2020-05-02] VITALS (23 sets, daily range): BP systolic 121–162; BP diastolic 41–75; TEMP 98.4–99.1
[2020-05-02 05:35] LABS: PLATELET COUNT 183 K/uL (152-353)
[2020-05-02 05:46] LABS: POTASSIUM 3.4 mmol/L (3.6-5.2)
[2020-05-03] VITALS (14 sets, daily range): BP systolic 95–148; BP diastolic 41–66; TEMP 98–99.5
[2020-05-03 04:51] LABS: PLATELET COUNT 160 K/uL (152-353)
[2020-05-03 05:00] LABS: POTASSIUM 3.6 mmol/L (3.6-5.2)
[2020-05-04 00:17] VITALS: BP 167/68; TEMP 98.4
[2020-05-04 03:50] VITALS: BP 148/57; TEMP 98.1
[2020-05-04 08:00] VITALS: BP 132/50; TEMP 98.7
[2020-05-04 08:22] LABS: POTASSIUM 3.3 mmol/L (3.6-5.2)
[2020-05-04 12:00] VITALS: BP 121/68; TEMP 98.1
[2020-05-04 16:00] VITALS: BP 117/44; TEMP 98.4
[2020-05-04 20:00] VITALS: BP 119/56; TEMP 98.4
[2020-05-05] VITALS: BP 129/65; TEMP 97.6
[2020-05-05 04:00] VITALS: BP 131/91; TEMP 98.7
[2020-05-05 05:44] LABS: PLATELET COUNT 223 K/uL (152-353)
[2020-05-05 06:44] LABS: POTASSIUM 4.4 mmol/L (3.6-5.2)
[2020-05-05 08:00] VITALS: BP 161/70; TEMP 98.3
[2020-05-05 12:00] VITALS: BP 116/56; TEMP 98.1
[2020-05-05 16:00] VITALS: BP 150/66; TEMP 98.4
[2020-05-05 20:00] VITALS: BP 147/60; TEMP 97.8
[2020-05-06] VITALS: BP 137/54; TEMP 98.4
[2020-05-06 04:00] VITALS: BP 149/55; TEMP 97.9
[2020-05-06 08:00] VITALS: BP 140/45; TEMP 98.2
== END 2020-05-06 10:45 | DRG 871 ==
LOC: ED 14:59 → ICU 17:40 → MED/SURG 05-03 10:55
PROVIDERS: Family Medicine; Internal Medicine; ADMIT Internal Medicine Endocrinology, Diabetes & Metabolism; ATTEND Internal Medicine Endocrinology, Diabetes & Metabolism
DX: A41.89 Other specified sepsis (principal); J18.8 Other pneumonia, unspecified organism; J96.01 Acute respiratory failure with hypoxia; E87.0 Hyperosmolality and hypernatremia; N17.9 Acute kidney failure, unspecified; E87.2 Acidosis; N39.0 Urinary tract infection, site not specified; E87.8 Other disorders of electrolyte and fluid balance, not elsewhere classified; E83.52 Hypercalcemia; G20 Parkinson's disease; F02.80 Dementia in other diseases classified elsewhere, unspecified severity, without behavioral disturbance, psychotic disturbance, mood disturbance, and anxiety; E03.8 Other specified hypothyroidism; R13.19 Other dysphagia
CPT/HCPCS: 36415; 36600; 51702; 80048; 80053; 81000; 82550; 82553; 82805; 82962; 83605; 84443; 84484; 85027; 87040; 87088; 87635; 93005; 94640; 94664; 94760; 96360; 96365; 99285; J1956; J0696; J1650; J3490; U0003

== ENCOUNTER 2020-05-08 11:14 | Inpatient (IN) | payer OTHER ==
[~2020-05-08 11:14] MED LIST changes: +BENEPROTEIN6 GM PO; +FERROUS SULF325 M1 PO; +LEVO0.1224 PO; +MIRALAX17 GM PO
[2020-05-15] MEDS ORDERED: SYSTANE COMPLET0.6 % OPTH (14:03)
[2020-05-15] MEDS ORDERED: MEGESTROL AC40 MG/ML PO (14:06)
[2020-05-15] MEDS ORDERED: ONDA4TAB3 PO (14:07)
[2020-05-15] MEDS ORDERED: CLONIDINE HYDR0.2 MG PO (14:07)
[2020-05-15] MEDS ORDERED: CULTURELL3 PO (14:11)
[2020-05-16] MEDS ORDERED: AMLODIPINE BESYLATE PO (22:45)
[2020-05-16] MEDS ORDERED: BYSTOLIC10 MG PO (22:53)
[2020-05-16] MEDS ORDERED: PANTOPRAZOLE 40MG TA PO (22:55)
[2020-05-16] MEDS ORDERED: CELEBREX200 MG PO (22:55)
[2020-05-16] MEDS ORDERED: OLMESARTAN MEDO40 MG PO (22:59)
[2020-05-16] MEDS ORDERED: [UNRECOGNIZED DRUG - OTHER] PO (23:00)
[2020-05-16] MEDS ORDERED: CRESTOR20 MG PO (23:01)
[2020-05-16] MEDS ORDERED: CORICIDIN HBP C1 TA1 PO (23:04)
[2020-05-16] MEDS ORDERED: FLONASE AL50 MCG/AC1 NAS (23:05)
[2020-05-16] MEDS ORDERED: VIT E COMPLX400 UNIT PO (23:06)
[2020-05-16] MEDS ORDERED: B121000 MC1 PO (23:07)
[2020-05-16] MEDS ORDERED: MULTIVITAMIN1 TA1 PO (23:08)
[2020-05-16] MEDS ORDERED: OMEGA 31000 MG PO (23:08)
[2020-05-16] MEDS ORDERED: PREVAGEN10 MG PO (23:09)
== END 2020-06-08 09:04 | disposition still patient (30) ==
LOC: PAVB 11:14
PROVIDERS: ADMIT Internal Medicine; ATTEND Internal Medicine
DX: J18.9 Pneumonia, unspecified organism (principal); N39.0 Urinary tract infection, site not specified; R13.12 Dysphagia, oropharyngeal phase; M62.81 Muscle weakness (generalized); F02.80 Dementia in other diseases classified elsewhere, unspecified severity, without behavioral disturbance, psychotic disturbance, mood disturbance, and anxiety; Z86.73 Personal history of transient ischemic attack (TIA), and cerebral infarction without residual deficits; E78.5 Hyperlipidemia, unspecified; F33.9 Major depressive disorder, recurrent, unspecified; E55.9 Vitamin D deficiency, unspecified; N17.9 Acute kidney failure, unspecified; F41.1 Generalized anxiety disorder
CPT/HCPCS: 84443

== ENCOUNTER 2020-05-13 06:17 | Outpatient (CLI) | payer OTHER | END 2020-05-13 19:31 | disposition home or self-care (01) | LOC: LAB 06:17 | PROVIDERS: ATTEND Internal Medicine | DX: E03.8 Other specified hypothyroidism (principal) ==

== ENCOUNTER 2020-05-15 08:38 | Inpatient (IN) | payer OTHER ==
[~2020-05-15] VITALS: Ht 170.2 cm; Wt 69.1 kg
[2020-05-15 11:30] VITALS: BP 121/70; TEMP 99.1; Ht 170.2 cm; Wt 69.1 kg
[2020-05-15 12:00] VITALS: BP 143/79; TEMP 97.5
[2020-05-15 12:33] LABS: PLATELET COUNT 314 K/uL (152-353)
[2020-05-15 12:49] LABS: POTASSIUM 4.2 mmol/L (3.6-5.2)
[2020-05-15] MEDS ORDERED: SYSTANE COMPLET0.6 % OPTH (14:03)
[2020-05-15] MEDS ORDERED: MEGESTROL AC40 MG/ML PO (14:06)
[2020-05-15] MEDS ORDERED: ONDA4TAB3 PO (14:07)
[2020-05-15] MEDS ORDERED: CLONIDINE HYDR0.2 MG PO (14:07)
[2020-05-15] MEDS ORDERED: CULTURELL3 PO (14:11)
[2020-05-15 16:00] VITALS: BP 122/75; TEMP 98.3
[2020-05-15 20:00] VITALS: BP 150/67; TEMP 99.7
[2020-05-15 23:57] VITALS: BP 158/88; TEMP 98.4
[2020-05-16 04:00] VITALS: BP 132/85; TEMP 98.4
[2020-05-16 06:14] LABS: PLATELET COUNT 235 K/uL (152-353)
[2020-05-16 06:22] LABS: POTASSIUM 2.9 mmol/L (3.6-5.2)
[2020-05-16 08:00] VITALS: BP 143/67; TEMP 98.5
[2020-05-16 12:00] VITALS: BP 119/68; TEMP 98.3
[2020-05-16 16:00] VITALS: BP 130/76; TEMP 97.6
[2020-05-16 19:58] VITALS: BP 115/70; TEMP 98.6
[2020-05-16] MEDS ORDERED: AMLODIPINE BESYLATE PO (22:45)
[2020-05-16] MEDS ORDERED: BYSTOLIC10 MG PO (22:53)
[2020-05-16] MEDS ORDERED: PANTOPRAZOLE 40MG TA PO (22:55)
[2020-05-16] MEDS ORDERED: CELEBREX200 MG PO (22:55)
[2020-05-16] MEDS ORDERED: OLMESARTAN MEDO40 MG PO (22:59)
[2020-05-16] MEDS ORDERED: [UNRECOGNIZED DRUG - OTHER] PO (23:00)
[2020-05-16] MEDS ORDERED: CRESTOR20 MG PO (23:01)
[2020-05-16] MEDS ORDERED: CORICIDIN HBP C1 TA1 PO (23:04)
[2020-05-16] MEDS ORDERED: FLONASE AL50 MCG/AC1 NAS (23:05)
[2020-05-16] MEDS ORDERED: VIT E COMPLX400 UNIT PO (23:06)
[2020-05-16] MEDS ORDERED: B121000 MC1 PO (23:07)
[2020-05-16] MEDS ORDERED: MULTIVITAMIN1 TA1 PO (23:08)
[2020-05-16] MEDS ORDERED: OMEGA 31000 MG PO (23:08)
[2020-05-16] MEDS ORDERED: PREVAGEN10 MG PO (23:09)
[2020-05-16 23:43] VITALS: BP 121/68; TEMP 99.1
[2020-05-17 03:55] VITALS: BP 141/77; TEMP 98.1
[2020-05-17 05:18] LABS: POTASSIUM 4.2 mmol/L (3.6-5.2)
[2020-05-17 06:08] LABS: PLATELET COUNT 176 K/uL (152-353)
[2020-05-17 08:00] VITALS: BP 147/76; TEMP 97.6
[2020-05-17 12:00] VITALS: BP 144/52; TEMP 97.8
[2020-05-17 16:00] VITALS: BP 165/63; TEMP 97.8
[2020-05-17 19:55] VITALS: BP 133/63; TEMP 98.2
[2020-05-17 23:38] VITALS: BP 130/68; TEMP 97.8
[2020-05-18 03:37] VITALS: BP 128/58; TEMP 98
[2020-05-18 08:00] VITALS: BP 126/66; TEMP 98.3
[2020-05-18 12:00] VITALS: BP 129/69; TEMP 98.1
== END 2020-05-18 16:30 | DRG 178 ==
LOC: MED/SURG 08:38
PROVIDERS: ADMIT Internal Medicine; ATTEND Internal Medicine
PROC: 03H333Z Insertion of Infusion Device into Right Subclavian Artery, Percutaneous Approach (ICD-10-PCS; principal; 2020-05-16)
DX: J69.0 Pneumonitis due to inhalation of food and vomit (principal); N17.8 Other acute kidney failure; E87.1 Hypo-osmolality and hyponatremia; N39.0 Urinary tract infection, site not specified; R13.12 Dysphagia, oropharyngeal phase; E03.8 Other specified hypothyroidism; F03.90 Unspecified dementia, unspecified severity, without behavioral disturbance, psychotic disturbance, mood disturbance, and anxiety; G20 Parkinson's disease; E87.6 Hypokalemia
CPT/HCPCS: 36415; 80048; 80053; 82570; 84300; 84443; 85027; 87635; 94760; J1956; C1726; C1768; J0696; J3480; J3490; U0003

== ENCOUNTER 2020-05-28 18:28 | Outpatient (CLI) | payer OTHER ==
[~2020-05-28 18:28] MED LIST changes: +AMLODIPINE BESYLATE PO; +B121000 MC1 PO; +BYSTOLIC10 MG PO; +CELEBREX200 MG PO; +CLONIDINE HYDR0.2 MG PO; +CORICIDIN HBP C1 TA1 PO; +CRESTOR20 MG PO; +CULTURELL3 PO; +FLONASE AL50 MCG/AC1 NAS; +MEGESTROL AC40 MG/ML PO; +MULTIVITAMIN1 TA1 PO; +OLMESARTAN MEDO40 MG PO; +OMEGA 31000 MG PO; +ONDA4TAB3 PO; +PANTOPRAZOLE 40MG TA PO; +PREVAGEN10 MG PO; +SYSTANE COMPLET0.6 % OPTH; +VIT E COMPLX400 UNIT PO; +[UNRECOGNIZED DRUG - OTHER] PO
== END 2020-05-28 19:42 | disposition home or self-care (01) ==
LOC: LAB 18:28
PROVIDERS: ATTEND Internal Medicine
DX: N39.0 Urinary tract infection, site not specified (principal)
CPT/HCPCS: 81000; 87077; 87086; 87088; 87185; 87186

== ENCOUNTER 2020-06-08 09:28 | Inpatient (IN) | payer OTHER | END 2020-06-09 08:00 | disposition E | LOC: PAVB 09:28 | PROVIDERS: ADMIT Internal Medicine; ATTEND Internal Medicine ==